=== PATIENT | female | born 1970 | race Caucasian/White ===

== ENCOUNTER 2017-07-02 15:49 | Observation (INO) | payer OTHER ==
[~2017-07-02] VITALS: Ht 162.6 cm; Wt 120.7 kg
--- NOTE | ~2017-07-02 | OP ---
Record Of Operation [facility] [address] [place]. [address] NAME: KAYLAN IVEY : 68 STATUS : ADM Eduardo PAT#: [id number] AGE: 47 ADM/REG DATE : 07/02/17 MR#: [id number] REPORT SERV DATE: 07/03/17 DICTATED BY: GRISELDA CLAIRE DATE: 07/03/17 REPORT STATUS : Draft TRANSCRIBED BY: ANGELES DATE: 07/03/17 DATE OF PROCEDURE: CIRA-GUIDED CARDIOVERSION REPORT INDICATIONS: This is a 47-year-old white female with paroxysmal atrial fibrillation, referred for CIRA-guided cardioversion. She was given Lovenox while her INR was subtherapeutic at 1.1 and she switching to Eliquis. The risks and benefits of the procedure were explained to the patient. She agreed to proceed. PROCEDURE: The patient was sedated with propofol per Anesthesia. Vital signs were closely monitored during the procedure, remained stable. CIRA probe was introduced without any difficulties. No complications. FINDINGS: 1. No evidence of left atrial or left atrial appendage thrombus. 2. Mild LV enlargement with moderate decrease in systolic function. Estimated ejection fraction of 35%. Global hypokinesis. 3. Normal RV size and systolic function. 4. Mitral valve opens adequately. There is trace mitral valve regurgitation. Aortic valve opens adequately. 5. Tricuspid valve opens adequately with mild regurgitation. 6. Grossly normal pulmonic valve. 7. 200 joules of synchronized cardioversion restored normal sinus rhythm. The patient recovered well. CONCLUSIONS: Successful CIRA-guided cardioversion from atrial fibrillation to normal sinus rhythm. MARYANA/ANGELES Griselda Claire M.D. / [id number] CC: Ne Baer, MSN, CAN WASHER-BC
--- NOTE | ~2017-07-02 | HP ---
History And Physical [facility] [address] [place]. [address] NAME: KAYLAN IVEY : 68 STATUS : ADM Eduardo PAT#: [id number] AGE: 47 ADM/REG DATE : 07/02/17 MR#: [id number] REPORT SERV DATE: 07/03/17 DICTATED BY: NE WICK DATE: 07/03/17 REPORT STATUS : Draft TRANSCRIBED BY: MODHelene DATE: 07/03/17 DATE OF ADMISSION: 07/02/2017 PRIMARY CARE PROVIDER: Dr. Canas at [facility]. CHIEF COMPLAINT: Heart racing. HISTORY OF PRESENT ILLNESS: A pleasant somewhat anxious 47-year-old white female with recent previous episode of atrial fibrillation with RVR, requiring CIRA cardioversion and subsequent cardiac catheterization for second event of atrial fib/flutter while hospitalized which converted on its own. The patient states that she felt that she was back in atrial fibrillation on 07/01/2017 around 2200 hours. At night she was restless and somewhat short of breath. She came in on 07/02/2017 for an INR check to [facility] reported that she felt she was back in atrial fibrillation. Dr. Tong's office was notified. She was sent to the emergency room and placed in atrial fibrillation observation unit after being found back in atrial fibrillation. The patient denies any personal history of myocardial infarction, stroke, DVT, or pulmonary embolus. The patient denies any recent fever or chills. Palpitations occurring on 07/01/2017 around 2200 hours. No syncopal events. Denies PND. Does report some orthopnea. Sleeps on two to five pillows. Reports no caffeinated beverage intake. PAST MEDICAL HISTORY: 1. PAF, on beta rk and warfarin with subtherapeutic INR. 2. ADD, off Adderall for three weeks. 3. Hypertension. 4. Probable diabetes with hemoglobin A1c of 6.5. 5. BMI greater than 40. 6. History of previous drug abuse most recently cocaine, 10/2016. 7. Denies dyslipidemia. 8. Mild CAD by catheterization, 06/24/2017. 9. Remote tobacco abuse. 10.Positive family history for early CAD. PAST SURGICAL HISTORY: 1. Partial hysterectomy. 2. Left wrist repair. 3. Tonsillectomy. SOCIAL HISTORY: She is with one child. 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 She does not have an exercise routine. Quit smoking 15 years ago. Denies alcohol. History of polysubstance abuse in her 20s but reports most recent cocaine use, 10/2016. FAMILY HISTORY: Father suddenly at 52. No clear embolic events reported in first- degree relatives. History And Physical [address] [address] NAME: KAYLAN IVEY : 68 STATUS : ADM Eduardo PAT#: [id number] AGE: 47 ADM/REG DATE : 07/02/17 MR#: [id number] REPORT SERV DATE: 07/03/17 DICTATED BY: NE WICK DATE: 07/03/17 REPORT STATUS : Draft TRANSCRIBED BY: ANGELES DATE: 07/03/17 REVIEW OF SYSTEMS: A 14-point review of systems performed, significant for HPI including snores per report, is yet to arrange outpatient sleep study, subtherapeutic INR of 1.1. Reported she has not missed any of her Lovenox and/or warfarin doses. Otherwise, complete review of systems obtained and negative. ALLERGIES: NO KNOWN DRUG ALLERGIES. HOME MEDICATIONS: Aspirin 81 mg daily, Lovenox 120 mg subcutaneous twice daily, Lasix 40 mg daily, lisinopril 5 mg daily, metoprolol succinate 200 mg daily, NyQuil p.r.n., warfarin 7.5 mg nightly. PHYSICAL EXAMINATION: VITAL SIGNS: Bilateral blood pressures on arrival, right 167/89, left 162/95, this morning 127/75, pulse 95, respirations 19, temperature 97.7, O2 saturation 98% on room air. Height 5 feet 4 inches. Weight 266 pounds. BMI 46. GENERAL: Anxious. HEENT: Pupils 2 mm, sclera nonicteric. Nares patent. Moist mucous membranes. No xanthelasma. NECK: Trachea midline, no thyromegaly. No JVD. No bruits. LYMPH: No cervical lymphadenopathy. No supraclavicular lymphadenopathy. RESPIRATORY: Unlabored respirations. Breath sounds clear bilaterally to posterior auscultation. No wheezes or rhonchi. CARDIOVASCULAR: Irregularly irregular rate with a variable S1 and S2. No murmur, rub, or gallop appreciated. Normal carotids. EXTREMITIES: Without edema. Pulses 2+ bilaterally. ABDOMEN: Obese, soft, nontender, nondistended, normal bowel sounds auscultated throughout. No organomegaly. SKIN: Warm, dry extremities. No pallor, or cyanosis. PSYCHIATRIC: Appropriate affect. Alert, oriented x3. LABORATORY DATA: Troponin 0.03 x 2. TSH 4.180, free T4 of 0.98. BNP 191.3, potassium 4.1, BUN 24, creatinine 0.74, glucose 152, magnesium 2.3. WBC 9.2, hemoglobin 14.3, hematocrit 42.4, platelet count 222,000. PT 14.2, INR 1.1. EKG, atrial fibrillation with RVR. Cath on 06/24/2017 ([facility]): Mild CAD, EF 25%. CIRA cardioversion on 06/19/2017, converted to sinus rhythm. EF 30% to 35% dilated LA (4.1 cm). CTA of chest on 06/18/2017, no PE. ASSESSMENT AND PLAN: 1. Atrial fibrillation with rapid ventricular response. The patient currently on Cardizem drip. We will continue beta-rk. Continue home medications. Check urine drug screen given previous history of drug abuse although the patient denies any recent use. N.p.o. for probable CIRA cardioversion today. Most recent Lovenox dose on 07/02 a.m. The patient states she has not missed any of her warfarin 5 mg daily. History And Physical [address] [address] NAME: KAYLAN IVEY : 68 STATUS : ADM Eduardo PAT#: [id number] AGE: 47 ADM/REG DATE : 07/02/17 MR#: [id number] REPORT SERV DATE: 07/03/17 DICTATED BY: NE WICK DATE: 07/03/17 REPORT STATUS : Draft TRANSCRIBED BY: ANGELES DATE: 07/03/17 2. Subtherapeutic INR of 1.1. Continue Lovenox 120 mcg subcutaneous q.12 hours dose now, warfarin increased to 7.5 mg p.o. last evening. The patient will follow up with her PCP on 07/06/2017 as previously scheduled with an INR check at that time, and discharged with continued Lovenox bridge. 3. Adult-onset diabetes mellitus. Hemoglobin A1c 6.5 at most recent hospitalization. Lengthy discussion regarding ADA diet and exercise. 4. History of drug abuse. Check urine drug screen. 5. BMI greater than 40. Diet and exercise discussed. 6. Probable sleep apnea. Encouraged to arrange outpatient sleep study with PCP at followup. RADHA/ANGELES Ne Wick MSN, RIBBON LAPPER TENDER-BC / [id number] CC: IBRAHIMA Lay, RIBBON LAPPER TENDER-BC
[~2017-07-02 15:49] MED LIST: ASAB PO; C5 PO; FIBERCON PO; GOODY'S EX-STR1 EAC1 PO; L40 PO; LOVENOX120 SC; PRIN5 PO; TOPXL100 PO
[2017-07-02 17:00] LABS: BASOPHILS 0.4 %; BASOPHILS ABSOLUTE 0.04 10/3/uL (0.0-0.16); EOSINOPHILS 1.4 %; EOSINOPHILS ABSOLUTE 0.13 10/3/uL (0.0-0.53); ER CBC TAT 0 Hrs 13 Mins; HEMATOCRIT 42.4 % (36.0-48.0); HEMOGLOBIN 14.3 g/dL (12.0-16.0); IMMATURE GRANULOCYTES 0.7 %; IMMATURE GRANULOCYTES ABSOLUTE 0.06 10/3/uL (0.0-0.11); LYMPHOCYTES 26.6 %; LYMPHOCYTES ABSOLUTE 2.44 10/3/uL (0.67-4.30); MANUAL DIFF NO %; MEAN CORPUS HGB CONC 33.7 g/dL (32.0-36.0); MEAN CORPUSCULAR HEMOGLOB 28.1 pg (26.0-34.0); MEAN CORPUSCULAR VOLUME 83.3 fL (80-100); MEAN PLATELET VOLUME 9.3 fL (9.2-13.0); MONOCYTES 6.7 %; MONOCYTES ABSOLUTE 0.61 10/3/uL (0.21-1.20); NEUTROPHILS 64.2 %; NEUTROPHILS ABSOLUTE 5.88 10/3/uL (2.02-8.40); PLATELET COUNT 222 10/3/uL (150-400); RBC DISTRIBUTION WIDTH 13.7 % (12.0-16.0); RED CELL COUNT 5.09 10/6/uL (4.0-5.6); WHITE BLOOD CELLS 9.2 10/3/uL (4.5-10.5)
[2017-07-02 17:08] LABS: INTERNATIONAL NORMAL RATI 1.1 UNITS (-); PARTIAL THROMBO TIME 30.2 SEC (22.5-37.2)
[2017-07-02 17:09] LABS: PROTIME (NOT ORD) 14.2 SEC (12.0-14.5)
[2017-07-02 17:17] LABS: BUN (BLOOD UREA NITROGEN) 24 MG/DL (6-23); CALCIUM, SERUM 8.5 MG/DL (8.5-10.4); CHEST PAIN PROFILE TAT 0 Hrs 30 Mins; CHLORIDE, SERUM 108 MMOL/L (96-112); CREATININE 0.74 MG/DL (0.55-1.02); GFR AFRICAN AMERICAN 111 ML/MIN (>=60); GFR NON AFRICAN AMERICAN 96 ML/MIN (>=60); GLUCOSE, SERUM 152 MG/DL (60-99); POTASSIUM, SERUM 4.1 MMOL/L (3.5-5.3); SODIUM, SERUM 140 MMOL/L (135-148); TROPONIN I 0.03 NG/ML (<0.05)
[2017-07-02 17:18] LABS: CO2 (CARBON DIOXIDE) 24 MMOL/L (24-34)
[2017-07-02] MEDS ORDERED: NYQUIL PO (17:28)
[2017-07-02 22:48] LABS: INTERNATIONAL NORMAL RATI 1.1 UNITS (-); PARTIAL THROMBO TIME 27.7 SEC (22.5-37.2)
[2017-07-02 23:00] LABS: ALBUMIN 3.3 G/DL (3.5-5.0); FREE T4 0.98 NG/DL (0.76-1.46); SGOT(AST) 19 U/L (5-40); SGPT(ALT) 38 U/L (5-65); TOTAL BILIRUBIN 0.2 MG/DL (0-1.2); TOTAL PROTEIN 6.9 G/DL (6.0-8.5); TROPONIN I 0.03 NG/ML (<0.05)
[2017-07-02 23:09] LABS: ALKALINE PHOSPHATASE 67 U/L (45-117); DIRECT BILIRUBIN < 0.1 MG/DL (0.0-0.4); INDIRECT BILIRUBIN(NOT ORDER) 0.1 MG/DL (0.1-0.9)
[2017-07-03 04:52] LABS: INTERNATIONAL NORMAL RATI 1.1 UNITS (-); PROTIME (NOT ORD) 14.2 SEC (12.0-14.5)
[2017-07-03 08:54] LABS: AMPHETAMINES (NOT ORD) NEG (NEG); BARBITURATES (NOT ORDERED NEG (NEG); BENZODIAZEPINES (NOT ORD) NEG (NEG); CANNABINOIDS (THC) NEG (NEG); COCAINE (NOT ORDERED) NEG (NEG); OPIATES POS (NEG); PHENCYCLIDINE(PCP) NEG (NEG); TRICYCLICS NEG (NEG)
[2017-07-03] MEDS ORDERED: ELIQUIS 5 MG TAB5 MG PO (13:17)
[2017-07-03] MEDS ORDERED: CORDARONE PO (13:18)
== END 2017-07-03 15:35 | disposition home or self-care (01) ==
LOC: ER 15:49 → CDU2 19:29 → CDU1 19:29 → CDU2 20:41
PROVIDERS: Clinical Nurse Specialist; Emergency Medicine
PROC: B246ZZ4 Ultrasonography of Right and Left Heart, Transesophageal (ICD-10-PCS; principal; 2017-07-02)
PROC: 5A2204Z Restoration of Cardiac Rhythm, Single (ICD-10-PCS; 2017-07-02)
DX: I48.0 Paroxysmal atrial fibrillation (principal); I36.1 Nonrheumatic tricuspid (valve) insufficiency; I10 Essential (primary) hypertension; I42.0 Dilated cardiomyopathy; E11.9 Type 2 diabetes mellitus without complications; I25.10 Atherosclerotic heart disease of native coronary artery without angina pectoris; F98.8 Other specified behavioral and emotional disorders with onset usually occurring in childhood and adolescence; E66.01 Morbid (severe) obesity due to excess calories; Z68.41 Body mass index [BMI] 40.0-44.9, adult; Z82.49 Family history of ischemic heart disease and other diseases of the circulatory system; Z90.711 Acquired absence of uterus with remaining cervical stump; Z90.89 Acquired absence of other organs; Z87.891 Personal history of nicotine dependence; Z79.82 Long term (current) use of aspirin; Z79.01 Long term (current) use of anticoagulants; Z79.899 Other long term (current) drug therapy; Z98.890 Other specified postprocedural states
CPT/HCPCS: 71020; 80048; 80076; 80305; 83735; 83880; 84439; 84443; 84484; 85025; 85610; 85730; 92960; 93005; 93312; 93320; 93325; 96372; 96374; 96375; 96376; 99285; A9270-GY; G0378; J1200; J2405; J2765